=== PATIENT | male | born 1985 | race African-American/Black ===

== ENCOUNTER 2021-05-06 20:35 | Emergency (ER) | payer SELFPAY ==
[~2021-05-06] VITALS: Ht 188 cm; Wt 81.0 kg
[~2021-05-06 20:35] MED LIST: ALBU0.0912 IH
[2021-05-06 20:55] VITALS: BP 138/69
--- NOTE | 2021-05-06 21:01 | NUR ---
PATIENT TO BED 3 AMBULATORY
[2021-05-06] MEDS ORDERED: HYDROcodone/APAP 5/325 MG 1 TAB TAB PO ONE (22:50)
[2021-05-06] MEDS ORDERED: KETOROLAC 30 MG/ML VIAL IM ONE (22:50)
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
[2021-05-06 23:15] LABS: APPEARANCE,URINE CLEAR (CLEAR); BILIRUBIN,URINE NEGATIVE (NEGATIVE); BLOOD, URINE NEGATIVE (NEGATIVE); COLOR,URINE YELLOW (YELLOW); LEUKOCYTE ESTERASE ,URINE NEGATIVE (NEGATIVE); NITRITE, URINE NEGATIVE (NEGATIVE); UGLUCOSE NEGATIVE (NEGATIVE)
[2021-05-06] MEDS ORDERED: NAPR-54 PO (23:46)
[2021-05-06] MEDS ORDERED: ACET-8386 PO (23:46)
[2021-05-06 23:50] VITALS: BP 129/79
--- NOTE | 2021-05-06 23:55 | NUR ---
Patient discharged with v/s stable. Written and verbal after care instructions given and explained. Patient alert, oriented and verbalized understanding of instructions. Ambulatory with steady gait. All questions addressed prior to discharge. ID band removed. Patient advised to follow up with PMD. Rx of norco 5-325 and naproxen given. Patient educated on indication of medication including possible reaction and side effects. Opportunity to ask questions provided and answered.
== END 2021-05-06 23:55 | disposition home or self-care (01) ==
LOC: MED 20:35
DX: M54.50 Low back pain, unspecified (principal); J45.909 Unspecified asthma, uncomplicated; F17.210 Nicotine dependence, cigarettes, uncomplicated; Z79.891 Long term (current) use of opiate analgesic; Z79.1 Long term (current) use of non-steroidal anti-inflammatories (NSAID); Z79.899 Other long term (current) drug therapy
CPT/HCPCS: 72100; 81003; 96372; 99284; J1885

== ENCOUNTER 2021-07-11 07:31 | Emergency (ER) | payer OTHER ==
[~2021-07-11] VITALS: Ht 188 cm; Wt 80.9 kg
[~2021-07-11 07:31] MED LIST changes: +ACET-8386 PO; +NAPR-54 PO
[2021-07-11 07:35] VITALS: BP 133/85
--- NOTE | 2021-07-11 07:38 | NUR ---
DR SMITH AT BEDSIDE FOR FURTHER EVAL
[2021-07-11] MEDS ORDERED: MORPHINE SULFATE 4 MG/ML SYR IVP ONE (07:45)
[2021-07-11] MEDS ORDERED: ONDANSETRON 4 MG/2 ML VIAL IVP ONE (07:45)
[2021-07-11] MEDS ORDERED: NACL 0.9% 1,000 ML IV SCH (07:45)
--- NOTE | 2021-07-11 08:08 | NUR ---
20 G ESTABLISHED TO LEFT FA, LAB SAMPLES DRAWN VIA IV AND HANDED TO STAMP PRESS OPERATOR.
[2021-07-11 08:19] LABS: BASOPHILS % (AUTO) 1.4 % (0.0-2.0); EOSINOPHILS # (AUTO) 0.1 K/uL (0-0.4); EOSINOPHILS % (AUTO) 4.1 % (0.0-4.0); HEMATOCRIT 45.8 % (36-52); HEMOGLOBIN 15.5 g/dL (12.0-18.0); LYMPHOCYTES # (AUTO) 1.3 K/uL (2.0-11.5); LYMPHOCYTES % (AUTO) 40.8 % (20.5-51.1); MEAN CORPUSCULAR HEMOGLOBIN 31 pg (27-31); MEAN CORPUSCULAR HGB CONC 34 g/dL (33-37); MEAN CORPUSCULAR VOLUME 91.4 fL (80-94); MONOCYTES # (AUTO) 0.3 K/uL (0.8-1.0); MONOCYTES % (AUTO) 10.2 % (1.7-9.3); NEUTROPHILS # (AUTO) 1.3 K/uL (1.8-7.7); NEUTROPHILS % (AUTO) 43.5 % (42.2-75.2); PLATELET COUNT (AUTO) 239 K/uL (140-450); RED BLOOD CELL COUNT(AUTO) 5.01 MIL/uL (4.20-6.10); RED CELL DISTRIBUTION WIDTH 13.7 % (11.6-13.7); WHITE BLOOD COUNT (AUTO) 3.1 K/uL (4.8-10.8)
[2021-07-11 08:32] LABS: PROTHROMBIN TIME 9.7 secs (10.8-13.4)
[2021-07-11 08:34] LABS: ALBUMIN 4.3 g/dL (3.4-5.0); ANION GAP 13.4 (8-16); CARBON DIOXIDE 26.4 mmol/L (21-32); CREATININE 1.3 mg/dL (0.6-1.3); POTASSIUM 4.8 mmol/L (3.5-5.1); TOTAL BILIRUBIN 0.7 mg/dL (0.0-1.0)
--- NOTE | 2021-07-11 08:40 | NUR ---
[place] [employer] AT BEDSIDE SPEAKING WITH PT
--- NOTE | 2021-07-11 08:56 | NUR ---
[facility]
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
[2021-07-11 09:38] VITALS: BP 148/79
[2021-07-11] MEDS ORDERED: ACET-10509 PO (09:51)
--- NOTE | 2021-07-11 10:08 | NUR ---
[employer] AT BEDSIDE
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
== END 2021-07-11 10:22 | disposition home or self-care (01) ==
LOC: MED 07:31
DX: S09.90XA Unspecified injury of head, initial encounter (principal); R10.31 Right lower quadrant pain; J45.909 Unspecified asthma, uncomplicated; F12.90 Cannabis use, unspecified, uncomplicated; Z79.899 Other long term (current) drug therapy; V53.5XXA Driver of pick-up truck or van injured in collision with car, pick-up truck or van in traffic accident, initial encounter; Y93.89 Activity, other specified; Y92.89 Other specified places as the place of occurrence of the external cause; Y99.8 Other external cause status
CPT/HCPCS: 36415; 74177; 80053; 81002; 83690; 85025; 85610; 85730; 96361; 96374; 96375; 99285; J2270; J2405; J7030; Q9967